=== PATIENT | female | born 1995 | race Caucasian/White ===

== ENCOUNTER → 2016-09-30 | Outpatient (CLI) | payer OTHER ==
--- NOTE | 2016-09-30 12:03 | DIAGNOSTIC IMAGING REPORT ---
MRI OF THE LUMBAR SPINE WITHOUT CONTRAST CLINICAL HISTORY: Lumbar disc disease with radiculopathy. Low back pain with right lower extremity radiculopathy. COMPARISON STUDY: No previous studies for comparison. TECHNIQUE: Utilizing a 1.5 Stephani magnet and dedicated coil, multiplanar, multiecho imaging of the lumbar spine was performed without IV contrast. FINDINGS: For purposes of numbering on this exam, the L5-S1 disc space is assigned to axial image 23 of 25. Alignment of lumbar spine is anatomic. Vertebral body heights are maintained. There are post surgical findings at the L5-S1 level with a left hemilaminectomy at this level. There is disc space narrowing at the L5-S1 level. Evaluation is suboptimal given the lack of postcontrast images. No intracanalicular mass or fluid collection is present. Conus terminates at the lower L1 level. Paravertebral soft tissues are unremarkable. L1-2: The central canal and neural foramen are patent. L2-3: The central canal and neural foramen are patent. L3-4: The central canal and neural foramen are patent. L4-5: The central canal and neural foramen are patent. L5-S1: Post surgical findings are noted. There is disc space narrowing. There is minimal disc bulge. The central canal and neural foramen are patent. IMPRESSION: 1. Post surgical findings at the L5-S1 level suggestive of a left-sided hemilaminectomy. 2. Disc space narrowing with minimal disc bulge at the L5-S1 level. No significant central canal or neural foraminal narrowing. 2. Otherwise, unremarkable MRI of the lumbar spine. Electronically signed by: Reginaldo Wallace M.D. 09/30/2016 12:01 PM Dictated Date/Time: 09/30/2016 11:56 AM
== END | disposition home or self-care (01) ==
LOC: C.MRI 11:07
PROVIDERS: ATTEND General Practice
DX: M51.16 Intervertebral disc disorders with radiculopathy, lumbar region (principal); M54.5 Low back pain; M48.07 Spinal stenosis, lumbosacral region

== ENCOUNTER 2017-10-04 13:49 | Emergency (ER) | payer OTHER ==
[~2017-10-04] VITALS: Ht 175.3 cm; Wt 125.3 kg
[2017-10-04 14:03] VITALS: TEMP 37; Ht 175.3 cm; Wt 125.3 kg
[2017-10-04] MEDS ORDERED: GABA600T PO (14:16)
[2017-10-04] MEDS ORDERED: CARI350T28 PO (14:35)
[2017-10-04] MEDS ORDERED: DICL75TA2 PO (14:35)
[2017-10-04 14:44] VITALS: BP 154/90; PULSE 73; O2SAT 97
--- NOTE | 2017-10-04 18:19 | EMERGENCY ROOM VISIT NOTE ---
ED Visit Note First contact with patient: 14:15 CHIEF COMPLAINT: Low back pain radiating into her legs HISTORY OF PRESENT ILLNESS: This 22-year-old white female patient complains of pain in the low back which began 2 weeks ago. She was seen at [facility] and was prescribed a short course of prednisone. She states it did not help. She slipped and fell onto her buttocks and side on Friday and states her back pain has exacerbated. It is now radiating into both legs. The pain is worse with movement. Denies any bowel or bladder difficulties. There has been no leg numbness or weakness. No vomiting or abdominal pain. Pain is 10/ 10. A female friend accompanies her today. Patient states she has an appointment at home to receive an epidural injection over spring. She does have a history of previous microdiscectomy in January 2015. REVIEW OF SYSTEM: HEENT: No dizziness, visual problems, hearing loss, or tinnitus. There is no difficulty swallowing and no oral lesions are present. PULMONARY: No cough, shortness of breath, sputum production or hemoptysis. CARDIOVASCULAR: No chest pain, palpitations, shortness of breath or peripheral edema. GASTROINTESTINAL: No diarrhea, constipation, nausea, vomiting, or abdominal pain. GENITOURINARY: No dysuria, frequency, urgency or nocturia. NEUROLOGIC: No weakness, muscle tenderness, epilepsy or history of neurological problems. MUSCULOSKELETAL: No history of joint tenderness/swelling. No history of arthritis or arthralgias. SKIN: No rashes or lesions. ENDOCRINE: No history of diabetes, thyroid disorders, or abnormal hair growth. PMH: Supplemental sheet was reviewed and signed. Previous surgeries: Lumbar discectomy January 2015 Medical history: Significant for asthma, history of bronchitis, and history of pneumonia. Current medications: Reviewed and filed in patient's chart Allergies: NKDA Family history: Significant for diabetes, heart disease, hypertension, cancer, lung disease, gallbladder disease, and kidney stones SOCIAL HISTORY: Patient lives with a roommate. [employer] student. Single. Employed. No tobacco use, occasional EtOH use. PHYSICAL EXAM: Vital Signs: Afebrile. Reviewed and filed in patient's chart. General: Well-developed, well-nourished, morbidly obese young white female, in no obvious discomfort. No acute distress. She is sitting on the bed. Alert and oriented. Skin:Warm and dry with good turgor. No rashes or lesions. No ecchymosis or erythema. The patient is not diaphoretic. No abrasions. Small scar present over her lumbar spine. Musculoskeletal: There is tenderness in the right paraspinous muscles in the lumbar area. No tenderness over the spinous processes or discs spaces of the lumbar vertebrae. Range of motion of the back is limited secondary to pain, especially with rotation. Lower extremities have normal strength including dorsi-flexion and plantar flexion of the feet. Negative bilateral straight leg raises. She has focal discomfort with palpation over the right and left SI joints. No pain with palpation over the gluteus, piriformis, or sciatic notches in either buttock. Neurologic: normal and symmetrical knee reflexes. Gross sensation is intact across the lower extremities by soft touch. Peripheral pulses are 2+. DIAGNOSIS: Lumbar back pain with radiculopathy DISCHARGE INSTRUCTIONS AND TREATMENT: Patient was educated regarding today's findings. Conservative care measures were discussed. Gentle stretching daily. Ice to the back intermittently over the next 3 days, and then use moist heat. Avoid any heavy lifting x5 days. See your own doctor or an orthopedist for further definitive care. Prescription was provided for Voltaren 75 mg twice a day if needed for the pain. She was also given a prescription for Soma 350 mg every 6 hours as needed for more severe pain/spasm. Driving precautions were given. I did offer to give her a prescription of prednisone. She verbalized that she did not want to be on prednisone as it does increase her appetite. Continue with her scheduled physical therapy. Return to the ED for any acute exacerbation or loss of bowel or bladder control. Current/Historical Medications Scheduled Acetaminophen (Tylenol), 1,000 MG PO BID Carisoprodol (Soma), 350 MG PO Q6H Diclofenac Sodium (Voltaren), 1 TAB PO BID Gabapentin (Neurontin), 600 MG PO HS Allergies Coded Allergies: No Known Allergies (Unverified , 10/04/17) Vital Signs Date Time Temp Pulse Resp B/P (MAP) Pulse Ox O2 Delivery O2 Flow Rate FiO2 10/04/17 14:44 73 17 154/90 97 10/04/17 14:03 37.0 75 20 133/87 96 Room Air Departure Information Impression Primary Impression: SI (sacroiliac) joint dysfunction Additional Impression: Sciatica Dispostion Home / Self-Care Condition GOOD Prescriptions Diclofenac Sodium (VOLTAREN) 75 Mg Tab 1 TAB PO BID, #20 TAB Prov: Delfino Melendrez,P.A. 10/04/17 Carisoprodol (Soma) 350 Mg Tab 350 MG PO Q6H, #15 TAB Prov: Delfino Melendrez,P.A. 10/04/17 Referrals [facility] Services Forms HOME CARE DOCUMENTATION FORM, IMPORTANT VISIT INFORMATION Patient Instructions [facility] Additional Instructions Voltaren one pill twice a day with food Soma one tablet every 6 hours as needed for pain/spasm-no driving Gentle stretching daily Ice or moist heat to the low back intermittently as needed for comfort Follow-up with your orthopedist to discuss injection therapy Avoid any heavy lifting Continue with PT as scheduled Return to the ED for any acute changes or inability to void Problem Qualifiers
[2017-10-13] MEDS ORDERED: ACET-1256 PO (14:16)
== END 2017-10-04 14:45 | disposition home or self-care (01) ==
LOC: C.EDB 13:53 → C.EDD 14:45
DX: M54.41 Lumbago with sciatica, right side (principal); E66.01 Morbid (severe) obesity due to excess calories; Z68.41 Body mass index [BMI] 40.0-44.9, adult; W01.0XXA Fall on same level from slipping, tripping and stumbling without subsequent striking against object, initial encounter; Z98.890 Other specified postprocedural states; J45.909 Unspecified asthma, uncomplicated; Z87.01 Personal history of pneumonia (recurrent); Z79.899 Other long term (current) drug therapy

== ENCOUNTER 2017-10-13 20:03 | Emergency (ER) | payer OTHER ==
[~2017-10-13] VITALS: Ht 172.7 cm; Wt 124.4 kg
[~2017-10-13 20:03] MED LIST: ACET-1256 PO; CARI350T28 PO; DICL75TA2 PO; GABA600T PO
[2017-10-13 20:30] VITALS: TEMP 37.1; Ht 172.7 cm; Wt 124.4 kg
[2017-10-13] MEDS ORDERED: DICL75TA2 PO (21:45)
[2017-10-13] MEDS ORDERED: MDR4 PO (21:45)
[2017-10-13] MEDS ORDERED: GABA600T PO (21:45)
[2017-10-13] MEDS ORDERED: PROAIR INH (21:46)
--- NOTE | 2017-10-13 21:56 | EMERGENCY ROOM VISIT NOTE ---
History Report prepared by Can: Deyanira Angulo Under the Supervision of: Dr. Graham Kirby M.D. First contact with patient: 20:58 Chief Complaint: GI ASSESSMENT Stated Complaint: RECTAL BLEEDING Nursing Triage Summary: c/o 2 dark stools today then a normal stool then blood in stool. went to the dr had blood work and a rectal exam. denies pain at this time. History of Present Illness The patient is a 22 year old female who presents to the Emergency Room with complaints of persistent rectal bleeding that began today. The patient states that earlier today she had 2 dark stools, then a normal stool, followed by a bloody and clotted stool. She denies having any pain, dizziness, shortness of breath, fevers, chills, diarrhea, or nausea/vomiting. The patient states that she had an IUD put in place 2 weeks ago. She denies having similar previous symptoms, being on blood thinners, or having a family history of Crohn's disease. Source of History: patient Onset: today Position: other (GI) Quality: other (rectal bleeding) Timing: other (persistent) Associated Symptoms: No fevers, No chills, No nausea, No vomiting, No diarrhea Note: Patient denies: pain and dizziness. Review of Systems See HPI for pertinent positives and negatives. A total of ten systems were reviewed and were otherwise negative. Past Medical & Surgical Medical Problems: (1) Asthma (2) Bronchitis (3) Pneumonia Family History Seizures Social History Smoking Status: Never Smoker Smokeless Tobacco Use: No Alcohol Use: none Drug Use: none Marital Status: single Housing Status: lives with roommate Occupation Status: [employer] student Current/Historical Medications Scheduled Acetaminophen (Tylenol), 1,000 MG PO BID Diclofenac Sodium (Voltaren), 75 MG PO BID Gabapentin (Neurontin), 600 MG PO HS Methylprednisolone (Methylprednisolone), 4 MG PO UD Scheduled PRN [Proair], 2 PUFF INH Q4 PRN for SOB/Wheezing Allergies Coded Allergies: No Known Allergies (Unverified , 10/04/17) Physical Exam Vital Signs Date Time Temp Pulse Resp B/P (MAP) Pulse Ox O2 Delivery O2 Flow Rate FiO2 10/14/17 01:27 76 18 143/98 97 Room Air 10/13/17 23:19 81 18 152/100 98 Room Air 2/26/18 22:31 155/131 10/13/17 22:30 95 22 97 Room Air 10/13/17 22:00 89 23 99 Room Air 10/13/17 21:37 110 10/13/17 21:33 97 20 167/103 99 Room Air 10/13/17 20:30 37.1 69 20 165/131 100 Room Air Physical Exam GENERAL: Awake, alert, well-appearing, in no distress HENT: Normocephalic, atraumatic. Oropharynx unremarkable. EYES: Normal conjunctiva. Sclera non-icteric. NECK: Supple. No nuchal rigidity. FROM. No JVD. RESPIRATORY: Clear to auscultation. CARDIAC: Regular rate, normal rhythm. Extremities warm and well perfused. Pulses equal. ABDOMEN: Soft, non-distended. No tenderness to palpation. No rebound or guarding. No masses. RECTAL: Scant red blood that is guaiac positive, no external hemorrhoid. MUSCULOSKELETAL: Chest examination reveals no tenderness. The back is symmetrical on inspection without obvious abnormality. There is no CVA tenderness to palpation. No joint edema. LOWER EXTREMITIES: Calves are equal size bilaterally and non-tender. No edema. No discoloration. NEURO: Normal sensorium. No sensory or motor deficits noted. SKIN: No rash or jaundice noted. Medical Decision & Procedures ER Provider Diagnostic Interpretation: Preliminary Findings Only See Final Report For Complete Findings CT ABDOMEN & PELVIS With Contrast: No appendicitis, inflammatory changes of bowel or bowel obstruction. No free fluid. No free air. Aorta, liver, spleen, pancreas, gallbladder, and kidneys are unremarkable. IUD in place. No adnexal masses. Radiologist: Owen Reilly M.D. Laboratory Results 10/13/17 21:33 Red Blood Count 5.20, Mean Corpuscular Volume 80.0, Mean Corpuscular Hemoglobin 27.3, Mean Corpuscular Hemoglobin Concent 34.1, Mean Platelet Volume 10.1, Neutrophils (%) (Auto) 80.7, Lymphocytes (%) (Auto) 12.9, Monocytes (%) (Auto) 5.9, Eosinophils (%) (Auto) 0.0, Basophils (%) (Auto) 0.1, Neutrophils # (Auto) 16.62, Lymphocytes # (Auto) 2.65, Monocytes # (Auto) 1.22, Eosinophils # (Auto) 0.01, Basophils # (Auto) 0.02 10/13/17 21:33 Test 10/13/17 21:33 White Blood Count 20.60 K/uL (4.8-10.8) Red Blood Count 5.20 M/uL (4.2-5.4) Hemoglobin 14.2 g/dL (12.0-16.0) Hematocrit 41.6 % (37-47) Mean Corpuscular Volume 80.0 fL (80-100) Mean Corpuscular Hemoglobin 27.3 pg (25-34) Mean Corpuscular Hemoglobin Concent 34.1 g/dl (32-36) Platelet Count 390 K/uL (130-400) Mean Platelet Volume 10.1 fL (7.4-10.4) Neutrophils (%) (Auto) 80.7 % Lymphocytes (%) (Auto) 12.9 % Monocytes (%) (Auto) 5.9 % Eosinophils (%) (Auto) 0.0 % Basophils (%) (Auto) 0.1 % Neutrophils # (Auto) 16.62 K/uL (1.4-6.5) Lymphocytes # (Auto) 2.65 K/uL (1.2-3.4) Monocytes # (Auto) 1.22 K/uL (0.11-0.59) Eosinophils # (Auto) 0.01 K/uL (0-0.5) Basophils # (Auto) 0.02 K/uL (0-0.2) RDW Standard Deviation 44.1 fL (36.4-46.3) RDW Coefficient of Variation 15.2 % (11.5-14.5) Immature Granulocyte % (Auto) 0.4 % Immature Granulocyte # (Auto) 0.08 K/uL (0.00-0.02) Erythrocyte Sedimentation Rate 17 mm/hr (0-21) Urine Color YELLOW Urine Appearance CLEAR (CLEAR) Urine pH 6.5 (4.5-7.5) Urine Specific [place] 1.008 (1.000-1.030) Urine Protein NEG (NEG) Urine Glucose (UA) NEG (NEG) Urine Ketones NEG (NEG) Urine Occult Blood NEG (NEG) Urine Nitrite NEG (NEG) Urine Bilirubin NEG (NEG) Urine Urobilinogen NEG (NEG) Urine Leukocyte Esterase SMALL (NEG) Urine WBC (Auto) 1-5 /hpf (0-5) Urine RBC (Auto) 5-10 /hpf (0-4) Urine Hyaline Casts (Auto) 1-5 /lpf (0-5) Urine Epithelial Cells (Auto) 20-30 /lpf (0-5) Urine Bacteria (Auto) NEG (NEG) Anion Gap 10.0 mmol/L (3-11) Est Creatinine Clear Calc Drug Dose 151.5 ml/min Estimated GFR () 119.5 Estimated GFR (Non- 103.1 BUN/Creatinine Ratio 17.1 (10-20) Calcium Level 9.4 mg/dl (8.5-10.1) Total Bilirubin 0.2 mg/dl (0.2-1) Aspartate Amino Transf (AST/SGOT) 14 U/L (15-37) Alanine Aminotransferase (ALT/SGPT) 29 U/L (12-78) Alkaline Phosphatase 98 U/L (45-117) C-Reactive Protein 1.28 mg/dl (0-0.29) Total Protein 8.1 gm/dl (6.4-8.2) Albumin 4.1 gm/dl (3.4-5.0) Globulin 4.0 gm/dl (2.5-4.0) Albumin/Globulin Ratio 1.0 (0.9-2) Lipase 106 U/L (73-393) Human Chorionic Gonadotropin, Qual NEG (NEG) Date/Time Source Procedure Growth Status 10/14/17 00:40 Stool C.difficile Toxin B Gene (PCR) - Final No C. difficile toxin B gene detected Complete Laboratory results reviewed by me Medications Administered Medications (Trade) Dose Ordered Sig/Larisa Route Start Time Stop Time Status Last Admin Dose Admin Sodium Chloride 1,000 ml @ 999 mls/hr Q1H1M STAT IV 10/13/17 23:36 10/14/17 00:36 DC 10/13/17 23:36 999 MLS/HR Sodium Chloride 1,000 ml @ 999 mls/hr Q1H1M STAT IV 10/14/17 00:03 10/14/17 01:03 DC 10/14/17 00:03 999 MLS/HR ED Course 210: The patient was evaluated in room C12. A complete history and physical exam was performed. Medical Decision I reviewed the patient's past medical history, medications, and the nursing notes as described above. Differential diagnosis: Etiologies such as diverticulosis, AVM, coagulopathy, colitis, inflammatory bowel disease, malignancy, Pao-Barton tear, esophagitis, peptic ulcer disease , variceal bleed, gastritis, epistaxis, fissure, hemorrhoids, as well as others were entertained. The patient is a 22-year-old woman who presents emergency Department with red blood per rectum that began today. Arrival the patient is well-appearing, afebrile, vital signs stable. Rectal exam demonstrates a scant amount of dark red blood that was guaiac positive. WBC elevated to 20k. ESR and CRP marginally elevated 17 and 1.2 respectively. Labs otherwise unremarkable including H/H 14/. CT abd/pelvis with preliminary STATRAD read negative for acute findings. Given reassuring w/u in otherwise well-appearing 22 y/o. No indication for admission at this time. C-diff sent given leukocytosis (although no recent ABX) however elevation possible multifactorial including hemoconcentration in setting of mild dehydration as well as inflammatory process. HR and BP improved after IVF additionally support mild dehydration. Stool sample brought from home and >2hours without preservation and so we are unable to send for additional testing. Patient reports that she does have a family hx of cancers but is not clear on the details. She is not aware in particular of any known h/o colon cancer. Patient is current following with [facility] but request direct GI referral. Given patient's leukocytosis with hematochezia and question cancer hx reasonable to provide GI referral at this time. 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 Findings and plan for follow -up reviewed with patient. Patient agreeable and d/c'd per discharge instructions. Medication Reconcilliation Current Medication List: was personally reviewed by me Blood Pressure Screening Patient's blood pressure: Elevated blood pressure Blood pressure disposition: Elevated BP felt to be situational Impression Primary Impression: Hematochezia Scribe Attestation The scribe's documentation has been prepared under my direction and personally reviewed by me in its entirety. I confirm that the note above accurately reflects all work, treatment, procedures, and medical decision making performed by me. Departure Information Dispostion Home / Self-Care Referrals Jose Alberto Robins MD (PCP) Brian Lehman D.O. Patient Instructions ED Hematochezia Stable, My [facility] Additional Instructions Please follow up with S tomorrow and gastroenterology, Dr. Lehman, within 1 week for re-evaluation and for additional stool studies as initially planned with [facility]. The cause of your small amount of rectal bleeding is unclear at this time. Your white blood cells were elevated but this may be due to dehydration and inflammation. You should repeat this blood test with your doctor. Otherwise, your exam, lab results, and CT scan did not show signs of an emergent condition at this time. Your stool was sent for C-diff and you will be contacted only if the result if positive. Drink plenty of fluids to ensure hydration. Return to the emergency department for worsening symptoms as described in the accompanying instructions.
[2017-10-13 22:12] LABS: BASO % 0.1 %; BASO ABS # 0.02 K/uL (0-0.2); EOS ABS # 0.01 K/uL (0-0.5); HEMATOCRIT 41.6 % (37-47); HEMOGLOBIN 14.2 g/dL (12.0-16.0); IG# 0.08 K/uL (0.00-0.02); LYMPH % 12.9 %; LYMPH ABS # 2.65 K/uL (1.2-3.4); MEAN CORPUSCULAR HEMOGLOBIN 27.3 pg (25-34); MEAN CORPUSCULAR HGB CONC 34.1 g/dl (32-36); MEAN PLATELET VOLUME 10.1 fL (7.4-10.4); MONO % 5.9 %; MONO ABS # 1.22 K/uL (0.11-0.59); NEUT % 80.7 %; NEUT ABS # 16.62 K/uL (1.4-6.5); PLATELET COUNT 390 K/uL (130-400); RED CELL DISTRIBUTION WIDTH CV 15.2 % (11.5-14.5); RED CELL DISTRIBUTION WIDTH SD 44.1 fL (36.4-46.3)
[2017-10-13] MEDS ORDERED: OPTIRAY 320 IV PRN (22:15)
[2017-10-13 22:50] LABS: ALBUMIN 4.1 gm/dl (3.4-5.0); CALCIUM 9.4 mg/dl (8.5-10.1); CREATININE 0.81 mg/dl (0.60-1.20); POTASSIUM 4.1 mmol/L (3.5-5.1)
[2017-10-13 22:52] LABS: TOTAL PROTEIN 8.1 gm/dl (6.4-8.2)
[2017-10-13] MEDS ORDERED: SODIUM CHLORIDE 0.9% 1000ML 1,000 ML IV STA (23:36)
[2017-10-14] MEDS ORDERED: SODIUM CHLORIDE 0.9% 1000ML 1,000 ML IV STA (00:03)
[2017-10-14 01:27] VITALS: BP 143/98; PULSE 76; O2SAT 97
--- NOTE | 2017-10-14 07:24 | DIAGNOSTIC IMAGING REPORT ---
ABDOMEN AND PELVIS CT WITH IV CONTRAST CT DOSE: 1689.53 mGy.cm HISTORY: Acute rectal bleeding rectal bleeding TECHNIQUE: Multiaxial CT images of the abdomen and pelvis were performed following the use of intravenous contrast. A dose lowering technique was utilized adhering to the principles of ALARA. COMPARISON STUDY: Lumbar spine MRI 09/30/2016 FINDINGS: Lung bases appear clear. There is no pneumatosis or pneumoperitoneum identified. Imaged inferior cardiac chambers are unremarkable. The liver, gallbladder, spleen, pancreas and adrenal glands are within normal limits. The kidneys, ureters and urinary bladder are within normal limits. Intrauterine device appears appropriately positioned within the central uterus within the mid and fundal portions. No adnexal mass lesions are identified. Aorta is normal in course and caliber. No bulky adenopathy. There is no bowel obstruction or focal bowel wall thickening identified. Minimal high attenuating material is noted within the proximal appendiceal lumen which may reflect inspissated stool contents. No evidence of acute appendicitis. Soft tissues are unremarkable. Bones appear intact. Mild intervertebral disc space narrowing at L5-S1. IMPRESSION: 1. No acute intra-abdominal or intrapelvic abnormality identified. 2. Normal appendix. 3. IUD in situ. Electronically signed by: Joey Lucero M.D. 10/14/2017 7:23 AM Dictated Date/Time: 10/14/2017 7:20 AM
== END 2017-10-14 01:29 | disposition home or self-care (01) ==
LOC: C.EDB 20:05 → C.EDC 10-14 01:29
DX: K92.1 Melena (principal); J45.909 Unspecified asthma, uncomplicated; Z79.899 Other long term (current) drug therapy; Z87.01 Personal history of pneumonia (recurrent); Z87.09 Personal history of other diseases of the respiratory system; Z97.5 Presence of (intrauterine) contraceptive device; Z82.0 Family history of epilepsy and other diseases of the nervous system